=== PATIENT | female | born 1990 | race Caucasian/White ===

== ENCOUNTER 2020-01-27 17:17 | Outpatient (CLI) | payer BC, SELFPAY ==
--- NOTE | ~2020-01-27 | XR_ITS ---
EXAMINATION: XR chest 2V DATE: 01/27/2020 17:38 INDICATION: Cough and shortness of breath TECHNIQUE: PA and lateral views of the chest are obtained. COMPARISON: 12/25/2015 FINDINGS: The lungs are free of acute opacities. There is no pleural effusion or pneumothorax. The ca rdiomediastinal silhouette is normal. The visualized bones and soft tissues are unremarkable. IMPRESSION: 1. No acute cardiopulmonary abnormality. Reviewed, dictated and finalized at location A.
== END 2020-01-27 17:18 | disposition home or self-care (01) ==
LOC: CHSIMG 17:20
PROVIDERS: PCP Family Medicine; Visit Provider Family Medicine
DX: R05 Cough (principal)
CPT/HCPCS: 71046

== ENCOUNTER 2020-02-21 17:58 | Outpatient (CLI) | payer BC, SELFPAY ==
[2020-02-21 18:34] LABS: Hematocrit 41.8 % (35.0-49.0); Hemoglobin 13.9 g/dL (12.0-15.0); Mean Corpuscular HGB Conc 33.3 g/dL (32.0-36.0); Mean Corpuscular Hemoglobin 33.2 pg (27.0-31.0); Mean Corpuscular Volume 99.8 fL (78.0-102.0); Mean Platelet Volume 10.3 fl (9.2-11.8); Platelet Count Result 258 K/mm3 (150-420); Red Blood Count 4.19 M/mm3 (4.20-5.40); Red Cell Distribution Width 13.3 % (11.6-14.4); White Blood Count 6.1 K/mm3 (4.8-10.8)
[2020-02-21 18:35] LABS: Add Urine Microscopic? NO; Appearance Urine Clear (Clear); Bilirubin Urine Negative (Negative); Blood Urine Negative (Negative); Color Urine Yellow (Yellow); Glucose Urine UA Negative (Negative); Ketones Urine Negative (Negative); Leukocyte Esterase Ur Negative LEU/UL (Negative); Nitrate Urine Negative (Negative); Protein Urine Negative (Negative); Specific Grav Ur <= 1.005 (1.010-1.020); Urobilinogen Urine 0.2 mg/dL (0.2-1.0)
[2020-02-21 18:44] LABS: Creatinine Urine < 13.00 mg/dL (40-278); Total Protein Urine Random < 7.0 mg/dL (0.0-11.9)
[2020-02-21 19:18] LABS: Alanine Aminotransferase 21 U/L (14-59); Alkaline Phosphatase 80 U/L (46-116); Aspartate Amino Transferase 17 U/L (15-37); Bilirubin Direct 0.1 mg/dL (0-0.2); Bilirubin,Total 0.2 mg/dL (0.00-1.00); Estimated Glomerular Filt Rate > 60; Total Protein 6.8 g/dL (6.4-8.2)
[2020-02-25 19:42] LABS: Vitamin D 25 Hydroxy 29 ng/mL (30-100)
[2020-02-26 20:33] LABS: Complement C3 90 mg/dL (83-193)
== END 2020-02-21 17:59 | disposition home or self-care (01) ==
LOC: CHSLAB 18:01
PROVIDERS: PCP Family Medicine
DX: M32.14 Glomerular disease in systemic lupus erythematosus (principal); E55.9 Vitamin D deficiency, unspecified; Z79.899 Other long term (current) drug therapy
CPT/HCPCS: 36415; 80076; 81003; 82306; 82565; 82570; 84156; 85027; 86160; 86225

== ENCOUNTER 2020-05-15 13:29 | Outpatient (CLI) | payer BC, SELFPAY ==
[2020-05-15 13:51] LABS: Basophils Absolute Auto 0.02 K/mm3 (0.00-0.10); Basophils Percent Auto 0.4 % (0.0-1.0); Eosinophils Absolute Auto 0.14 K/mm3 (0.02-0.50); Eosinophils Percent Auto 2.8 % (1.0-6.0); Hematocrit 40.6 % (35.0-49.0); Hemoglobin 13.7 g/dL (12.0-15.0); Immature Granulocyte Absolute 0.02 K/mm3 (0.00-0.00); Immature Granulocyte Percent A 0.4 % (0.0-0.0); Lymphocytes Percent Auto 29.9 % (18.0-42.0); Mean Corpuscular HGB Conc 33.7 g/dL (32.0-36.0); Mean Corpuscular Hemoglobin 33.7 pg (27.0-31.0); Mean Corpuscular Volume 99.8 fL (78.0-102.0); Mean Platelet Volume 10.1 fl (9.2-11.8); Monocytes Absolute Auto 0.21 K/mm3 (0.10-0.90); Monocytes Percent Auto 4.2 % (2.0-11.0); Neutrophils Absolute Auto 3.1 K/mm3 (1.7-7.2); Neutrophils Percent Auto 62.3 % (50.0-70.0); Platelet Count Result 251 K/mm3 (150-420); Red Blood Count 4.07 M/mm3 (4.20-5.40); Red Cell Distribution Width 14.7 % (11.6-14.4)
[2020-05-15 14:47] LABS: Alanine Aminotransferase 25 U/L (14-59); Albumin Level 3.7 g/dL (3.4-5.0); Alkaline Phosphatase 83 U/L (46-116); Aspartate Amino Transferase 19 U/L (15-37); Bilirubin Direct 0.1 mg/dL (0-0.2); Bilirubin,Total 0.2 mg/dL (0.00-1.00); Estimated Glomerular Filt Rate > 60; Total Protein 6.6 g/dL (6.4-8.2)
[2020-05-18 19:41] LABS: Vitamin D 25 Hydroxy 44 ng/mL (30-100)
== END 2020-05-15 13:30 | disposition home or self-care (01) ==
LOC: CHSLAB 13:33
PROVIDERS: PCP Family Medicine
DX: M32.14 Glomerular disease in systemic lupus erythematosus (principal); E55.9 Vitamin D deficiency, unspecified
CPT/HCPCS: 36415; 80076; 82306; 82565; 85025

== ENCOUNTER 2020-08-14 19:11 | Outpatient (CLI) | payer BC, SELFPAY ==
[2020-08-14 19:23] LABS: Collection Time Urine 24 HOURS
[2020-08-14 19:41] LABS: Creatinine Urine 54.19 mg/dL (40-278); Patient Weight 125 Lbs; Total Protein Urine Random 11.1 mg/dL (0.0-11.9)
[2020-08-14 19:42] LABS: Serum Creat 0.78; Total Protein Urine 24 Hr 190 mg/24hr (0-149); Total Volume 24 Hour Urine 1715 ml
[2020-08-14 21:00] LABS: Basophils Absolute Auto 0.02 K/mm3 (0.00-0.10); Basophils Percent Auto 0.4 % (0.0-1.0); Eosinophils Absolute Auto 0.12 K/mm3 (0.02-0.50); Eosinophils Percent Auto 2.1 % (1.0-6.0); Hematocrit 38.9 % (35.0-49.0); Hemoglobin 12.9 g/dL (12.0-15.0); Immature Granulocyte Absolute 0.02 K/mm3 (0.00-0.00); Immature Granulocyte Percent A 0.4 % (0.0-0.0); Lymphocytes Absolute Auto 1.44 K/mm3 (1.10-4.50); Lymphocytes Percent Auto 25.4 % (18.0-42.0); Mean Corpuscular HGB Conc 33.2 g/dL (32.0-36.0); Mean Corpuscular Hemoglobin 33.9 pg (27.0-31.0); Mean Corpuscular Volume 102.4 fL (78.0-102.0); Mean Platelet Volume 10.3 fl (9.2-11.8); Monocytes Absolute Auto 0.26 K/mm3 (0.10-0.90); Monocytes Percent Auto 4.6 % (2.0-11.0); Neutrophils Absolute Auto 3.8 K/mm3 (1.7-7.2); Neutrophils Percent Auto 67.1 % (50.0-70.0); Platelet Count Result 267 K/mm3 (150-420); Red Cell Distribution Width 14.8 % (11.6-14.4); White Blood Count 5.7 K/mm3 (4.8-10.8)
[2020-08-14 21:09] LABS: Albumin Level 3.5 g/dL (3.4-5.0); Anion Gap 7 mmol/L (8-16); Blood Urea Nitrogen 8 mg/dL (7-18); Calcium 8.3 mg/dL (8.5-10.1); Carbon Dioxide 26 mmol/L (21-32); Chloride 105 mmol/L (98-108); Estimated Glomerular Filt Rate > 60; Glucose 116 mg/dL (70-99); Osmolality Calculated 285 mOsm/kg (285-295); Phosphorus 3.3 mg/dL (2.6-4.7); Potassium 4.1 mmol/L (3.5-5.1); Sodium 138 mmol/L (136-145)
[2020-08-14 21:22] LABS: MALB Creatinine Ratio 23.9 mg/g (0-30); Microalbumin Urine Random < 13.0 mg/L
[2020-08-19 15:19] LABS: Parathyroid Intact 60 pg/mL (14-64)
== END 2020-08-14 19:12 | disposition home or self-care (01) ==
LOC: CHSLAB 19:13
PROVIDERS: PCP Family Medicine; Visit Provider Internal Medicine Nephrology
DX: I12.9 Hypertensive chronic kidney disease with stage 1 through stage 4 chronic kidney disease, or unspecified chronic kidney disease (principal); N18.2 Chronic kidney disease, stage 2 (mild); M32.14 Glomerular disease in systemic lupus erythematosus
CPT/HCPCS: 36415; 80069; 81050; 82043; 82575; 83970; 84156; 85025

== ENCOUNTER 2020-09-11 13:28 | Outpatient (CLI) | payer BC, SELFPAY ==
[2020-09-11 13:44] LABS: Basophils Absolute Auto 0.01 K/mm3 (0.00-0.10); Basophils Percent Auto 0.2 % (0.0-1.0); Eosinophils Absolute Auto 0.13 K/mm3 (0.02-0.50); Hematocrit 38.6 % (35.0-49.0); Hemoglobin 12.7 g/dL (12.0-15.0); Immature Granulocyte Absolute 0.01 K/mm3 (0.00-0.00); Immature Granulocyte Percent A 0.2 % (0.0-0.0); Lymphocytes Percent Auto 27.5 % (18.0-42.0); Mean Corpuscular HGB Conc 32.9 g/dL (32.0-36.0); Mean Corpuscular Hemoglobin 33.8 pg (27.0-31.0); Mean Corpuscular Volume 102.7 fL (78.0-102.0); Mean Platelet Volume 9.7 fl (9.2-11.8); Monocytes Absolute Auto 0.19 K/mm3 (0.10-0.90); Monocytes Percent Auto 4.4 % (2.0-11.0); Neutrophils Absolute Auto 2.8 K/mm3 (1.7-7.2); Neutrophils Percent Auto 64.7 % (50.0-70.0); Platelet Count Result 246 K/mm3 (150-420); Red Blood Count 3.76 M/mm3 (4.20-5.40); Red Cell Distribution Width 14.3 % (11.6-14.4); White Blood Count 4.4 K/mm3 (4.8-10.8)
[2020-09-11 13:58] LABS: Add Urine Microscopic? NO; Appearance Urine Clear (Clear); Bilirubin Urine Negative (Negative); Blood Urine Negative (Negative); Color Urine Yellow (Yellow); Glucose Urine UA Negative (Negative); Ketones Urine Negative (Negative); Leukocyte Esterase Ur Negative LEU/UL (Negative); Nitrate Urine Negative (Negative); Protein Urine Negative (Negative); Specific Grav Ur <= 1.005 (1.010-1.020); Urobilinogen Urine 0.2 mg/dL (0.2-1.0)
[2020-09-11 14:13] LABS: Creatinine Urine 31.68 mg/dL (40-278); Total Protein Urine Random 8.2 mg/dL (0.0-11.9)
[2020-09-11 14:53] LABS: Erythrocyte Sedimentation Rate 14 mm/hr (0-15)
[2020-09-11 16:18] LABS: Alanine Aminotransferase 25 U/L (14-59); Albumin Level 3.8 g/dL (3.4-5.0); Alkaline Phosphatase 78 U/L (46-116); Anion Gap 12 mmol/L (8-16); Aspartate Amino Transferase 15 U/L (15-37); Bilirubin,Total 0.2 mg/dL (0.00-1.00); Blood Urea Nitrogen 5 mg/dL (7-18); Calcium 8.6 mg/dL (8.5-10.1); Carbon Dioxide 26 mmol/L (21-32); Chloride 104 mmol/L (98-108); Estimated Glomerular Filt Rate > 60; Glucose 85 mg/dL (70-99); Osmolality Calculated 290 mOsm/kg (285-295); Sodium 142 mmol/L (136-145); Total Protein 6.5 g/dL (6.4-8.2)
[2020-09-11 16:30] LABS: CRP < 0.2 mg/dL (0.0-0.9)
[2020-09-16 11:52] LABS: Complement C3 100 mg/dL (83-193)
== END 2020-09-11 13:29 | disposition home or self-care (01) ==
PROVIDERS: PCP Family Medicine
DX: M32.14 Glomerular disease in systemic lupus erythematosus (principal)
CPT/HCPCS: 36415; 80053; 81003; 82570; 84156; 85025; 85652; 86140; 86160; 86225

== ENCOUNTER 2020-11-26 21:24 | Emergency (ER) | payer BC, SELFPAY ==
--- NOTE | ~2020-11-26 | XR_ITS ---
EXAMINATION: XR chest 1V portable DATE: 11/26/2020 21:55 INDICATION: Shortness of breath. COVID exposure. TECHNIQUE: frontal view of the chest was obtained. COMPARISON: Chest radiograph dated 01/27/2020 FINDINGS: The lungs remain clear with no focal airspace opacities, pulmonary edema, pleural effusion or pneumot horax. The cardiomediastinal silhouette is normal. Visualized bones and soft tissues are unremarkable . IMPRESSION: 1. Normal chest radiograph. Reviewed, dictated and finalized at location A. 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 Normal chest radiograph.
[2020-11-26 21:27] VITALS: BP 129/95; PULSE 111; RESP 16; TEMP 36.7; O2SAT 97
--- NOTE | 2020-11-26 22:06 | ED.URI ---
HPI - URI/Sore Throat General Chief Complaint: Upper Respiratory Infection Stated Complaint: covid symptoms Time Seen by Provider: 11/26/20 21:36 Source: patient Mode of arrival: ambulatory Limitations: no limitations History of Present Illness HPI Narrative: Patient is a 30-year-old female who presents complaining of sinus pressure, headache and diarrhea x3 days. Patient reports positive Covid exposure. 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 Patient reports mild shortness of breath starting this afternoon. She denies cough or fever. She denies taking [id number] medications for symptom relief at this time. MD elicited complaint: sinus pain Review of Systems Review of Systems: Narrative: CONSTITUTIONAL: Denies fever, chills, or sweats. EYES: Denies visual changes, redness, or discharge. ENT: Reports sinus pressure, congestion CARDIOVASCULAR: Denies chest pain, palpitations, or edema. RESPIRATORY: Denies cough or dyspnea. GASTROINTESTINAL: Reports diarrhea, denies abdominal pain, nausea, vomiting GENITOURINARY: Denies dysuria or hematuria. SKIN: Denies rash or itching. MUSCULOSKELETAL: Denies back pain, joint pain, or myalgia. NEUROLOGIC: Reports headache PSYCHIATRIC: Denies anxiety or depression. [facility] Past Medical History Medical History Lupus Surgical History Surgical History No significant past surgical history Family History Family History Other Diabetes mellitus Social History Social History (Updated 11/26/20 @ 22:11 by LITO White) Smoking status: Current every day smoker Alcohol intake: current Substance use: never Exam Narrative: Exam Narrative: GENERAL: Well-appearing, well-nourished, and in no acute distress. HEAD: Normocephalic, atraumatic. EYES: EOMI. No redness or drainage. Conjunctiva are normal. ENT: Mucous membranes pink and moist. Nares clear. No rhinorrhea. TMs normal bilaterally. Throat normal. Uvula midline. CHEST: No respiratory distress. Clear to auscultation. HEART: Regular rate and rhythm. EXTREMITIES: Normal range of motion. SKIN: Warm, dry, no rash. NEURO: No focal deficits. Alert and oriented x3. Gait steady. PSYCH: Normal affect. No signs of depression or anxiety. Course Vital Signs Vital signs: Vital Signs Temperature 36.7 C 11/26/20 21:27 Pulse Rate 111 H 11/26/20 21:27 Respiratory Rate 16 11/26/20 21:27 Blood Pressure 129/95 H 11/26/20 21:27 Pulse Oximetry 97 11/26/20 21:27 Temperature 36.4 C 11/26/20 22:28 Pulse Rate 104 H 11/26/20 22:28 Respiratory Rate 16 11/26/20 22:28 Blood Pressure 124/86 11/26/20 22:28 Pulse Oximetry 99 11/26/20 22:28 Reviewed MDM - URI/Sore Throat MDM Narrative Medical decision making narrative: Patient's chest x-ray is normal. Covid testing performed at this time. Patient aware of the need for quarantine until results of Covid testing are determined. Patient is stable for discharge home with outpatient follow-up as needed. Differential Diagnosis Differential diagnosis: Likely upper respiratory infection Lab Data Labs: Lab Results 11/26/20 Range/Units 22:24 SARS-CoV-2 RNA (RT-PCR) Pending Imaging Data Radiologist's impression: ITS Impressions Chest X-Ray 11/26/20 22:05 IMPRESSION: 1. Normal chest radiograph. Critical Care Time Critical Care Time Critical Care Time: No Discharge Plan Discharge Clinical Impression: Upper respiratory infection Qualifiers: URI type: unspecified URI Qualified Code(s): J06.9 - Acute upper respiratory infection, unspecified Patient Disposition: Home, Self-Care Condition: Stable Instructions: Antibiotic Form, COVID-19 (Coronavirus Disease 20
[2020-11-26 22:28] VITALS: BP 124/86; PULSE 104; RESP 16; TEMP 36.4; O2SAT 99
[2020-11-27 18:46] LABS: SARS-CoV-2 RNA PCR Negative
== END 2020-11-26 22:29 | disposition home or self-care (01) ==
PROVIDERS: Emergency Provider Nurse Practitioner; PCP Family Medicine
DX: J06.9 Acute upper respiratory infection, unspecified (principal); Z20.822 Contact with and (suspected) exposure to COVID-19
CPT/HCPCS: 71045; 99283; C9803; U0003; U0005

== ENCOUNTER 2021-01-29 15:48 | Outpatient (CLI) | payer BC, SELFPAY ==
[2021-01-29 16:12] LABS: Basophils Absolute Auto 0.02 K/mm3 (0.00-0.10); Basophils Percent Auto 0.3 % (0.0-1.0); Eosinophils Absolute Auto 0.04 K/mm3 (0.02-0.50); Eosinophils Percent Auto 0.7 % (1.0-6.0); Hematocrit 41.2 % (35.0-49.0); Hemoglobin 13.4 g/dL (12.0-15.0); Immature Granulocyte Absolute 0.02 K/mm3 (0.00-0.00); Immature Granulocyte Percent A 0.3 % (0.0-0.0); Lymphocytes Absolute Auto 1.36 K/mm3 (1.10-4.50); Lymphocytes Percent Auto 22.3 % (18.0-42.0); Mean Corpuscular HGB Conc 32.5 g/dL (32.0-36.0); Mean Corpuscular Volume 101.5 fL (78.0-102.0); Mean Platelet Volume 9.8 fl (9.2-11.8); Monocytes Absolute Auto 0.23 K/mm3 (0.10-0.90); Monocytes Percent Auto 3.8 % (2.0-11.0); Neutrophils Absolute Auto 4.4 K/mm3 (1.7-7.2); Neutrophils Percent Auto 72.6 % (50.0-70.0); Platelet Count Result 274 K/mm3 (150-420); Red Blood Count 4.06 M/mm3 (4.20-5.40); Red Cell Distribution Width 14.1 % (11.6-14.4); White Blood Count 6.1 K/mm3 (4.8-10.8)
[2021-01-29 16:21] LABS: Add Urine Microscopic? NO; Appearance Urine Clear (Clear); Bilirubin Urine Negative (Negative); Blood Urine Negative (Negative); Color Urine Yellow (Yellow); Glucose Urine UA Negative (Negative); Ketones Urine Negative (Negative); Leukocyte Esterase Ur Negative LEU/UL (Negative); Nitrate Urine Negative (Negative); Protein Urine Negative (Negative); Specific Grav Ur <= 1.005 (1.010-1.020); Urobilinogen Urine 0.2 mg/dL (0.2-1.0)
[2021-01-29 16:51] LABS: Alanine Aminotransferase 25 U/L (14-59); Albumin Level 3.9 g/dL (3.4-5.0); Alkaline Phosphatase 80 U/L (46-116); Anion Gap 9 mmol/L (8-16); Aspartate Amino Transferase 34 U/L (15-37); Bilirubin,Total 0.3 mg/dL (0.00-1.00); Blood Urea Nitrogen 7 mg/dL (7-18); Calcium 8.3 mg/dL (8.5-10.1); Carbon Dioxide 28 mmol/L (21-32); Chloride 101 mmol/L (98-108); Estimated Glomerular Filt Rate > 60; Glucose 113 mg/dL (70-99); Osmolality Calculated 285 mOsm/kg (285-295); Potassium 3.8 mmol/L (3.5-5.1); Sodium 138 mmol/L (136-145); Total Protein 6.9 g/dL (6.4-8.2)
[2021-01-29 16:55] LABS: CRP < 0.2 mg/dL (0.0-0.9)
[2021-01-29 17:18] LABS: Erythrocyte Sedimentation Rate 20 mm/hr (0-15)
[2021-02-01 03:46] LABS: Vitamin D 25 Hydroxy 38 ng/mL (30-100)
[2021-02-01 15:02] LABS: Complement C3 96 mg/dL (83-193)
== END 2021-01-29 15:49 | disposition home or self-care (01) ==
LOC: CHSLAB 15:52
PROVIDERS: PCP Family Medicine; Visit Provider Internal Medicine Rheumatology
DX: M32.14 Glomerular disease in systemic lupus erythematosus (principal); E55.9 Vitamin D deficiency, unspecified
CPT/HCPCS: 36415; 80053; 81003; 82306; 85025; 85652; 86140; 86160; 86225; 87070; 87075; 87077; 87086; 87205

== ENCOUNTER 2021-06-24 15:15 | Outpatient (CLI) | payer BC, SELFPAY ==
[2021-06-24 16:18] LABS: SARS-CoV-2 RNA PCR Negative (Negative)
== END 2021-06-24 15:16 | disposition home or self-care (01) ==
LOC: CHSLAB 15:18
PROVIDERS: PCP Family Medicine; Visit Provider Family Medicine
DX: J02.9 Acute pharyngitis, unspecified (principal); Z20.822 Contact with and (suspected) exposure to COVID-19
CPT/HCPCS: 87081; 87880; C9803; U0003; U0005

== ENCOUNTER 2021-07-16 17:05 | Outpatient (CLI) | payer BC, SELFPAY ==
--- NOTE | ~2021-07-16 | XR_ITS ---
EXAMINATION: XR chest 2V DATE: 07/16/2021 17:32 INDICATION: Central chest pain. TECHNIQUE: Frontal and lateral views of the chest were obtained. COMPARISON: Chest single view 11/26/2020 FINDINGS: The chest demonstrates clear lungs without pneumonia, pleural effusion, or pneumothorax. Th e heart size is normal. IMPRESSION: 1. No acute cardiopulmonary disease. Reviewed, dictated and finalized at location A.
[2021-07-16 17:30] LABS: Basophils Absolute Auto 0.02 K/mm3 (0.00-0.10); Basophils Percent Auto 0.4 % (0.0-1.0); Eosinophils Absolute Auto 0.06 K/mm3 (0.02-0.50); Eosinophils Percent Auto 1.3 % (1.0-6.0); Hematocrit 40.4 % (35.0-49.0); Hemoglobin 13.4 g/dL (12.0-15.0); Immature Granulocyte Absolute 0.02 K/mm3 (0.00-0.00); Immature Granulocyte Percent A 0.4 % (0.0-0.0); Lymphocytes Absolute Auto 1.35 K/mm3 (1.10-4.50); Lymphocytes Percent Auto 28.8 % (18.0-42.0); Mean Corpuscular HGB Conc 33.2 g/dL (32.0-36.0); Mean Corpuscular Hemoglobin 33.3 pg (27.0-31.0); Mean Corpuscular Volume 100.2 fL (78.0-102.0); Mean Platelet Volume 9.6 fl (9.2-11.8); Monocytes Absolute Auto 0.28 K/mm3 (0.10-0.90); Neutrophils Percent Auto 63.1 % (50.0-70.0); Platelet Count Result 281 K/mm3 (150-420); Red Blood Count 4.03 M/mm3 (4.20-5.40); Red Cell Distribution Width 14.1 % (11.6-14.4); White Blood Count 4.7 K/mm3 (4.8-10.8)
[2021-07-16 17:38] LABS: Add Urine Microscopic? YES; Appearance Urine Clear (Clear); Bilirubin Urine Negative (Negative); Blood Urine Negative (Negative); Color Urine Yellow (Yellow); Glucose Urine UA Negative (Negative); Ketones Urine Trace (Negative); Leukocyte Esterase Ur Negative (Negative); Nitrate Urine Negative (Negative); Protein Urine Negative (Negative); Specific Grav Ur >= 1.030 (1.010-1.020); Urobilinogen Urine 0.2 mg/dL (0.2-1.0)
[2021-07-16 17:45] LABS: Alanine Aminotransferase 24 U/L (14-59); Albumin Level 3.7 g/dL (3.4-5.0); Alkaline Phosphatase 66 U/L (46-116); Anion Gap 8 mmol/L (8-16); Aspartate Amino Transferase 13 U/L (15-37); Bilirubin,Total 0.3 mg/dL (0.00-1.00); Blood Urea Nitrogen 12 mg/dL (7-18); Calcium 8.4 mg/dL (8.5-10.1); Carbon Dioxide 29 mmol/L (21-32); Chloride 106 mmol/L (98-108); Estimated Glomerular Filt Rate > 60; Glucose 80 mg/dL (70-99); Osmolality Calculated 294 mOsm/kg (285-295); Potassium 4.1 mmol/L (3.5-5.1); Sodium 143 mmol/L (136-145); Total Protein 6.7 g/dL (6.4-8.2)
[2021-07-16 17:50] LABS: CRP < 0.5 mg/dL (0.0-0.9)
[2021-07-16 17:56] LABS: Bacteria Urine Trace /hpf; RBC Urine None seen /hpf (0-2); Squamous Epithelial Cell Urine Few /hpf (Few); WBC Urine None seen /hpf (0-3)
[2021-07-16 18:16] LABS: Erythrocyte Sedimentation Rate 10 mm/hr (0-15)
[2021-07-19 10:14] LABS: Complement C3 93 mg/dL (83-193)
[2021-07-19 15:18] LABS: Vitamin D 25 Hydroxy 26 ng/mL (30-100)
== END 2021-07-16 17:06 | disposition home or self-care (01) ==
PROVIDERS: PCP Family Medicine; Visit Provider Internal Medicine Rheumatology
DX: M32.14 Glomerular disease in systemic lupus erythematosus (principal); R07.89 Other chest pain
CPT/HCPCS: 36415; 71046; 80053; 81001; 82306; 85025; 85652; 86140; 86160; 86225; 87086

== ENCOUNTER 2021-08-09 08:46 | Outpatient (CLI) | payer BC, SELFPAY | END 2021-08-09 08:47 | disposition home or self-care (01) | LOC: CHSCARD 08:48 | PROVIDERS: PCP Family Medicine; Visit Provider Family Medicine | DX: R06.02 Shortness of breath (principal); R07.89 Other chest pain | CPT/HCPCS: 94060; 94726; 94729 ==

== ENCOUNTER 2021-09-23 19:41 | Outpatient (CLI) | payer BC, SELFPAY ==
[2021-09-23 20:02] LABS: Creatinine 24 Hour Urine 1.15 g/24 hr (0.60-1.80); Total Volume 24 Hour Urine 850 ml
[2021-09-23 20:09] LABS: Total Protein Urine 24 Hr 245 mg/24hr (0-149); Total Protein Urine Random 28.8 mg/dL (0.0-11.9); Total Volume 24 Hour Urine 850 ml
[2021-09-24 10:42] LABS: Collection Time Urine 24 HOURS
== END 2021-09-23 19:42 | disposition home or self-care (01) ==
LOC: CHSLAB 19:43
PROVIDERS: PCP Family Medicine; Visit Provider Internal Medicine Nephrology
DX: M32.14 Glomerular disease in systemic lupus erythematosus (principal); N18.1 Chronic kidney disease, stage 1; M32.9 Systemic lupus erythematosus, unspecified; N03.9 Chronic nephritic syndrome with unspecified morphologic changes
CPT/HCPCS: 81002; 81050; 82570; 82575; 84156

== ENCOUNTER 2021-10-01 18:09 | Outpatient (CLI) | payer BC, SELFPAY ==
[2021-10-01 19:48] LABS: Collection Time Urine 24 HOURS
[2021-10-01 19:54] LABS: Patient Weight 128 Lbs; Serum Creat 0.81; Total Volume 24 Hour Urine 1200 ml
[2021-10-01 20:04] LABS: Creatinine Clearance Urine 125.8 ml/min (97-137); Creatinine Urine 108.81 mg/dL (40-278)
== END 2021-10-01 18:10 | disposition home or self-care (01) ==
PROVIDERS: PCP Family Medicine; Visit Provider Internal Medicine Nephrology
DX: M32.14 Glomerular disease in systemic lupus erythematosus (principal); I12.9 Hypertensive chronic kidney disease with stage 1 through stage 4 chronic kidney disease, or unspecified chronic kidney disease; N18.1 Chronic kidney disease, stage 1; M32.9 Systemic lupus erythematosus, unspecified
CPT/HCPCS: 82575

== ENCOUNTER 2021-10-27 20:48 | Emergency (ER) | payer BC, SELFPAY ==
[2021-10-27 20:55] VITALS: BP 117/85; PULSE 99; RESP 16; TEMP 36.2; O2SAT 99
[2021-10-27 23:24] VITALS: BP 119/89; PULSE 94; RESP 16; O2SAT 97
--- NOTE | 2021-10-27 23:44 | ED.GENADULT ---
HPI - General Adult General Chief complaint: Abdominal Pain Stated complaint: abd pain Time Seen by Provider: 10/27/21 23:12 Source: patient Mode of arrival: ambulatory Limitations: no limitations History of Present Illness HPI narrative: 31-year-old with a history of lupus here with complaints of pain in the pelvic area for the last 5 days. She states that she has seen her primary doctor was started on Augmentin 2 days ago she still continues to have pain and increasing swelling. She denies any fever or chills. Onset (ago): day(s) (5) Location: genitals Severity: moderate Quality: aching Pain Consistency: constant Relieving factors: none Exacerbating factors: none Treatments prior to arrival: other (On Augmentin) Related Data Home Medications Medication Instructions Recorded Confirmed amoxicillin-pot clavulanate tablet 10/27/21 azathioprine 10/27/21 brexpiprazole [Rexulti] mg 10/27/21 citalopram mg 10/27/21 citalopram mg 10/27/21 fluconazole 10/27/21 hydroxychloroquine PO 10/27/21 spironolactone 10/27/21 Allergies Allergy/AdvReac Type Severity Reaction Status Date / Time No Known Allergies Allergy Verified 10/27/21 21:02 Review of Systems Review of Systems: All systems reviewed & are unremarkable except as noted in HPI and below ROS unobtainable: Yes unobtainable due to endotracheal tube Constitutional: Constitutional: Reports no additional constitutional complaints Eyes: Eyes: Reports no additional eye complaints ENT: Reports system reviewed and no additional complaints, except as documented Cardiovascular: Cardiovascular: Reports no additional cardiovascular complaints Respiratory: Respiratory: Reports no additional respiratory complaints Gastrointestinal: Gastrointestinal: Reports no additional gastrointestinal complaints Genitourinary: Genitourinary: Reports as per HPI Musculoskeletal: Musculoskeletal: Reports no additional musculoskeletal complaints Integumentary/Breasts: Skin/Breast: Reports system reviewed and no additional complaints, except as docu PMFSH Past Medical History Medical History Lupus Surgical History Surgical History No significant past surgical history Family History Family History Other Diabetes mellitus Social History Social History Smoking status: Current every day smoker Alcohol intake: current Substance use: never Exam Narrative: GENERAL: Well-appearing, well-nourished, and in no acute distress. HEAD: Normocephalic, atraumatic. EYES: PERRLA and EOMI. NECK: Supple. CHEST: Clear to auscultation. No respiratory distress. HEART: Regular rate and rhythm. No murmur heard. Normal peripheral pulses. ABDOMEN: Soft, nontender, nondistended, normal active bowel sounds. there is about 3 cms swelling noted on the right side lateral to labia , hard , skin is erythematous and mild induration , non fluctuant EXTREMITIES: Normal range of motion. No edema. SKIN: Warm, dry, no rash. NEURO: No focal deficits. Alert and oriented x3. PSYCH: Normal mood and affect. Course Course Emergency Course: Inform patient about my physical findings. It is too early for I&D at this time. Advised her to continue Augmentin 1 warm compress. Follow-up with HOME SUPPORT WORKER or primary doctor for I&D. Patient requested pain medication. Vital Signs Vital signs: Vital Signs Temperature 36.2 C L 10/27/21 20:55 Pulse Rate 99 10/27/21 20:55 Respiratory Rate 16 10/27/21 20:55 Blood Pressure 117/85 10/27/21 20:55 Pulse Oximetry 99 10/27/21 20:55 Temperature 36.2 C L 10/27/21 20:55 Pulse Rate 94 10/27/21 23:24 Respiratory Rate 16 10/27/21 23:24 Blood Pressure 119/89 10/27/21 23:24 Pulse Oximetry 97 10/27/21 23:24 Medical Decis
[2021-10-28] MEDS: HYDROcodone/acetaminophen (*CRX) 5-325 MG TABLET 1 TAB PO (00:18)
[2021-10-28 00:22] VITALS: BP 105/83; PULSE 76; RESP 16; O2SAT 100
== END 2021-10-28 00:25 | disposition home or self-care (01) ==
LOC: ANHED 23:52
PROVIDERS: Emergency Provider Family Medicine; PCP Family Medicine
DX: N76.2 Acute vulvitis (principal); M32.9 Systemic lupus erythematosus, unspecified; F17.210 Nicotine dependence, cigarettes, uncomplicated
CPT/HCPCS: 99283; A9270

== ENCOUNTER 2022-02-09 18:01 | Outpatient (CLI) | payer BC, SELFPAY ==
[2022-02-09 18:28] LABS: Basophils Absolute Auto 0.04 K/mm3 (0.00-0.10); Basophils Percent Auto 0.8 % (0.0-1.0); Eosinophils Absolute Auto 0.08 K/mm3 (0.02-0.50); Eosinophils Percent Auto 1.6 % (1.0-6.0); Hematocrit 43.9 % (35.0-49.0); Hemoglobin 14.5 g/dL (12.0-15.0); Immature Granulocyte Absolute 0.02 K/mm3 (0.00-0.00); Immature Granulocyte Percent A 0.4 % (0.0-0.0); Lymphocytes Absolute Auto 1.69 K/mm3 (1.10-4.50); Lymphocytes Percent Auto 34.6 % (18.0-42.0); Mean Corpuscular Hemoglobin 33.3 pg (27.0-31.0); Mean Corpuscular Volume 100.9 fL (78.0-102.0); Mean Platelet Volume 10.1 fl (9.2-11.8); Monocytes Absolute Auto 0.51 K/mm3 (0.10-0.90); Monocytes Percent Auto 10.5 % (2.0-11.0); Neutrophils Absolute Auto 2.5 K/mm3 (1.7-7.2); Neutrophils Percent Auto 52.1 % (50.0-70.0); Platelet Count Result 291 K/mm3 (150-420); Red Blood Count 4.35 M/mm3 (4.20-5.40); Red Cell Distribution Width 14.1 % (11.6-14.4); White Blood Count 4.9 K/mm3 (4.8-10.8)
[2022-02-09 18:37] LABS: Add Urine Microscopic? YES; Appearance Urine Clear (Clear); Bilirubin Urine Negative (Negative); Blood Urine Negative (Negative); Color Urine Dark Yellow (Yellow); Glucose Urine UA Negative (Negative); Ketones Urine Trace (Negative); Leukocyte Esterase Ur Negative LEU/UL (Negative); Nitrate Urine Negative (Negative); Protein Urine Negative (Negative); Specific Grav Ur >= 1.030 (1.010-1.020); Urobilinogen Urine 0.2 mg/dL (0.2-1.0)
[2022-02-09 18:38] LABS: Creatinine Urine 166.55 mg/dL (40-278); Total Protein Urine Random 43.3 mg/dL (0.0-11.9); Ur Ttl Prot Creatinine Ratio 0.26 mg/mg (0-0.20)
[2022-02-09 18:39] LABS: Bacteria Urine Trace /hpf; RBC Urine 0-2 /hpf (0-2); Squamous Epithelial Cell Urine Rare /hpf (Few); WBC Urine 0-3 /hpf (0-3)
[2022-02-09 18:40] LABS: Mucus Urine Few /lpf
[2022-02-09 19:24] LABS: Alanine Aminotransferase 32 U/L (14-59); Albumin Level 3.8 g/dL (3.4-5.0); Alkaline Phosphatase 66 U/L (46-116); Anion Gap 8 mmol/L (8-16); Aspartate Amino Transferase 24 U/L (15-37); Bilirubin,Total 0.2 mg/dL (0.00-1.00); Blood Urea Nitrogen 12 mg/dL (7-18); CRP < 0.5 mg/dL (0.0-0.9); Calcium 8.5 mg/dL (8.5-10.1); Carbon Dioxide 27 mmol/L (21-32); Chloride 103 mmol/L (98-108); Estimated Glomerular Filt Rate > 60; Glucose 81 mg/dL (70-99); Osmolality Calculated 284 mOsm/kg (285-295); Potassium 4.3 mmol/L (3.5-5.1); Sodium 138 mmol/L (136-145); Total Protein 6.6 g/dL (6.4-8.2)
[2022-02-09 19:37] LABS: Erythrocyte Sedimentation Rate 28 mm/hr (0-15)
== END 2022-02-09 18:02 | disposition home or self-care (01) ==
LOC: CHSLAB 18:03
PROVIDERS: PCP Family Medicine; Visit Provider Internal Medicine Rheumatology
DX: M32.14 Glomerular disease in systemic lupus erythematosus (principal); Z79.899 Other long term (current) drug therapy
CPT/HCPCS: 36415; 80053; 81001; 82570; 84156; 85025; 85652; 86140; 86160; 86225

== ENCOUNTER 2022-02-25 16:56 | Outpatient (CLI) | payer BC, SELFPAY ==
[2022-03-03 15:01] LABS: Complement C3 100 mg/dL (83-193)
== END 2022-02-25 16:57 | disposition home or self-care (01) ==
LOC: CHSLAB 17:02
PROVIDERS: PCP Internal Medicine Rheumatology; Visit Provider Internal Medicine Rheumatology
DX: M32.14 Glomerular disease in systemic lupus erythematosus (principal); Z79.899 Other long term (current) drug therapy
CPT/HCPCS: 86160

== ENCOUNTER 2022-08-18 17:13 | Outpatient (CLI) | payer BC, SELFPAY ==
[2022-08-18 17:38] LABS: Basophils Absolute Auto 0.03 K/mm3 (0.00-0.10); Basophils Percent Auto 0.7 % (0.0-1.0); Eosinophils Absolute Auto 0.08 K/mm3 (0.02-0.50); Eosinophils Percent Auto 1.7 % (1.0-6.0); Hematocrit 41.3 % (35.0-49.0); Hemoglobin 13.7 g/dL (12.0-15.0); Immature Granulocyte Absolute 0.01 K/mm3 (0.00-0.00); Immature Granulocyte Percent A 0.2 % (0.0-0.0); Lymphocytes Absolute Auto 1.53 K/mm3 (1.10-4.50); Lymphocytes Percent Auto 33.2 % (18.0-42.0); Mean Corpuscular HGB Conc 33.2 g/dL (32.0-36.0); Mean Corpuscular Hemoglobin 33.3 pg (27.0-31.0); Mean Corpuscular Volume 100.5 fL (78.0-102.0); Mean Platelet Volume 10.1 fl (9.2-11.8); Monocytes Absolute Auto 0.29 K/mm3 (0.10-0.90); Monocytes Percent Auto 6.3 % (2.0-11.0); Neutrophils Absolute Auto 2.7 K/mm3 (1.7-7.2); Neutrophils Percent Auto 57.9 % (50.0-70.0); Platelet Count Result 266 K/mm3 (150-420); Red Blood Count 4.11 M/mm3 (4.20-5.40); Red Cell Distribution Width 13.7 % (11.6-14.4); White Blood Count 4.6 K/mm3 (4.8-10.8)
[2022-08-18 17:40] LABS: Appearance Urine Clear (Clear); Bilirubin Urine Negative (Negative); Blood Urine Negative (Negative); Glucose Urine UA Negative (Negative); Ketones Urine 1+ (Negative); Leukocyte Esterase Ur Negative (Negative); Nitrate Urine Negative (Negative); Protein Urine Trace (Negative); Specific Grav Ur >= 1.030 (1.010-1.020); Urobilinogen Urine 0.2 mg/dL (0.2-1.0)
[2022-08-18 17:41] LABS: Add Urine Microscopic? YES; Color Urine Dark Orange (Yellow); RBC Urine None seen /hpf (0-2); Squamous Epithelial Cell Urine Few /hpf (Few); WBC Urine None seen /hpf (0-3)
[2022-08-18 17:42] LABS: Bacteria Urine Trace /hpf; Mucus Urine Few /lpf
[2022-08-18 17:45] LABS: Creatinine Urine 306.36 mg/dL (40-278); Ur Ttl Prot Creatinine Ratio 0.23 mg/mg (0-0.20)
[2022-08-18 17:54] LABS: Alanine Aminotransferase 46 U/L (14-59); Albumin Level 3.8 g/dL (3.4-5.0); Alkaline Phosphatase 64 U/L (46-116); Anion Gap 6 mmol/L (8-16); Aspartate Amino Transferase 26 U/L (15-37); Bilirubin,Total 0.4 mg/dL (0.00-1.00); Blood Urea Nitrogen 13 mg/dL (7-18); Calcium 8.5 mg/dL (8.5-10.1); Carbon Dioxide 28 mmol/L (21-32); Chloride 106 mmol/L (98-108); Estimated Glomerular Filt Rate > 60; Glucose 97 mg/dL (70-99); Osmolality Calculated 290 mOsm/kg (285-295); Potassium 4.1 mmol/L (3.5-5.1); Sodium 140 mmol/L (136-145); Total Protein 6.7 g/dL (6.4-8.2)
[2022-08-18 17:55] LABS: CRP < 0.2 mg/dL (0.0-0.9)
[2022-08-18 18:37] LABS: Erythrocyte Sedimentation Rate 8 mm/hr (0-15)
[2022-08-22 06:49] LABS: Complement C3 111 mg/dL (83-193)
[2022-08-24 12:22] LABS: Vitamin D 25 Hydroxy 36 ng/mL (30-100)
== END 2022-08-18 17:14 | disposition home or self-care (01) ==
LOC: CHSLAB 17:16
PROVIDERS: PCP Family Medicine; Visit Provider Internal Medicine Rheumatology
DX: E55.9 Vitamin D deficiency, unspecified (principal); M32.14 Glomerular disease in systemic lupus erythematosus
CPT/HCPCS: 36415; 80053; 81001; 82306; 82570; 84156; 85025; 85652; 86140; 86160; 86225; 87086

== ENCOUNTER 2022-10-20 17:56 | Outpatient (CLI) | payer BC, SELFPAY ==
[2022-10-20 18:27] LABS: Basophils Percent Auto 0.7 % (0.2-1.2); Eosinophils Absolute Auto 0.1 K/mm3 (0-0.3); Eosinophils Percent Auto 1.9 % (0-4.4); Immature Granulocyte Absolute 0.01 K/mm3 (0.00-0.031); Immature Granulocyte Percent A 0.2 % (0-0.5); Lymphocytes Absolute Auto 1.91 K/mm3 (0.9-3.2); Lymphocytes Percent Auto 33.6 % (18.3-44.2); Mean Corpuscular HGB Conc 33.3 g/dl (32-36); Mean Corpuscular Hemoglobin 33.1 pg (26-34); Mean Corpuscular Volume 99.3 fl (80-100); Mean Platelet Volume 9.5 fl (7.4-10.4); Monocytes Absolute Auto 0.5 K/mm3 (0.1-0.6); Monocytes Percent Auto 8.6 % (2.6-8.5); Neutrophils Absolute Auto 3.1 K/mm3 (1.3-6.7); Platelet Count Result 235 k/mm3 (150-375); Red Blood Count 4.23 M/mm3 (4.2-5.4); Red Cell Distribution Width 12.7 % (11.5-14.5); White Blood Count 5.7 K/mm3 (4.5-10.0)
[2022-10-20 18:39] LABS: Albumin Level 4.4 g/dL (3.5-5.1); Anion Gap 5 mmol/L (8-16); Blood Urea Nitrogen 10 mg/dL (7-17); Calcium 8.6 mg/dL (8.4-10.2); Carbon Dioxide 27 mmol/L (22-30); Chloride 104 mmol/L (98-107); Estimated Glomerular Filt Rate > 60; Glucose 106 mg/dL (65-110); Phosphorus 3.2 mg/dL (2.5-4.5); Potassium 4.4 mmol/L (3.4-5.0); Sodium 136 mmol/L (137-145)
[2022-10-20 18:47] LABS: Complement C3 104 mg/dL (88-165)
[2022-10-20 19:01] LABS: Erythrocyte Sedimentation Rate 11 mm/hr (0-20)
[2022-10-21 05:04] LABS: Appearance Urine Clear (Clear); Bilirubin Urine Negative (Negative); Blood Urine Negative (Negative); Color Urine Yellow (Yellow); Glucose Urine UA Negative (Negative); Ketones Urine Negative (Negative); Leukocyte Esterase Ur Negative LEU/UL (NEGATIVE); Nitrate Urine Negative (Negative); Protein Urine Negative (Negative); Specific Grav Ur 1.025 (1.001-1.035); Urobilinogen Urine 0.2 mg/dL (<2.0); pH Urine 6.5 (5.0-9.0)
[2022-10-21 05:14] LABS: Creatinine Urine 109.4 mg/dL
[2022-10-21 05:20] LABS: Add Urine Microscopic? NO
[2022-10-21 06:45] LABS: Total Protein Urine Random < 5 mg/dL; Ur Ttl Prot Creatinine Ratio < 0.05 mg/mg (0-0.20)
[2022-10-31 22:59] LABS: Anti Nuclear Antibody Titer 1:40 (Negative)
== END 2022-10-20 17:57 | disposition home or self-care (01) ==
LOC: ANHLAB 17:58
PROVIDERS: PCP Family Medicine; Visit Provider Internal Medicine Nephrology
DX: M32.14 Glomerular disease in systemic lupus erythematosus (principal)
CPT/HCPCS: 36415; 80069; 81003; 82570; 84156; 85025; 85652; 86038; 86039; 86160; 86225

== ENCOUNTER 2023-05-18 15:55 | Outpatient (CLI) | payer BC, SELFPAY ==
[2023-05-18 16:11] LABS: Appearance Urine Clear (Clear); Bilirubin Urine Negative (Negative); Blood Urine Negative (Negative); Glucose Urine UA Negative (Negative); Ketones Urine Trace (Negative); Leukocyte Esterase Ur Negative (Negative); Nitrate Urine Negative (Negative); Protein Urine Trace (Negative); Specific Grav Ur >= 1.030 (1.010-1.020); Urobilinogen Urine 0.2 mg/dL (0.2-1.0); pH Urine 5.5 (5.0-8.0)
[2023-05-18 16:15] LABS: Add Urine Microscopic? YES; Color Urine Dark Yellow (Yellow); RBC Urine None seen /hpf (0-2); Squamous Epithelial Cell Urine Few /hpf (Few); WBC Urine None seen /hpf (0-3)
[2023-05-18 16:16] LABS: Bacteria Urine Trace /hpf
== END 2023-05-18 15:56 | disposition home or self-care (01) ==
LOC: CHSLAB 15:57
PROVIDERS: PCP Family Medicine; Visit Provider Internal Medicine Rheumatology
DX: M32.14 Glomerular disease in systemic lupus erythematosus (principal)
CPT/HCPCS: 81001; 87086

== ENCOUNTER 2024-01-08 18:34 | Outpatient (CLI) | payer BC, SELFPAY ==
[2024-01-08 18:56] LABS: Basophils Absolute Auto 0.03 K/mm3 (0.00-0.10); Basophils Percent Auto 0.5 % (0.0-1.0); Eosinophils Absolute Auto 0.08 K/mm3 (0.02-0.50); Eosinophils Percent Auto 1.2 % (1.0-6.0); Immature Granulocyte Absolute 0.01 K/mm3 (0.00-0.00); Immature Granulocyte Percent A 0.2 % (0.0-0.0); Lymphocytes Absolute Auto 1.74 K/mm3 (1.10-4.50); Lymphocytes Percent Auto 26.8 % (18.0-42.0); Mean Corpuscular HGB Conc 32.6 g/dL (32.0-36.0); Mean Corpuscular Hemoglobin 30.4 pg (27.0-31.0); Mean Corpuscular Volume 93.5 fL (78.0-102.0); Mean Platelet Volume 9.4 fl (9.2-11.8); Monocytes Absolute Auto 0.46 K/mm3 (0.10-0.90); Monocytes Percent Auto 7.1 % (2.0-11.0); Neutrophils Absolute Auto 4.2 K/mm3 (1.7-7.2); Neutrophils Percent Auto 64.2 % (50.0-70.0); Platelet Count Result 312 K/mm3 (150-420); Red Cell Distribution Width 12.8 % (11.6-14.4); White Blood Count 6.5 K/mm3 (4.8-10.8)
[2024-01-08 19:03] LABS: Creatinine Urine 244.04 mg/dL (40-278); Total Protein Urine Random 41.2 mg/dL (0.0-11.9); Ur Ttl Prot Creatinine Ratio 0.17 mg/mg (0-0.20)
[2024-01-08 20:13] LABS: Erythrocyte Sedimentation Rate 6 mm/hr (0-15)
[2024-01-08 20:15] LABS: Anion Gap 10 mmol/L (8-16); Blood Urea Nitrogen 17 mg/dL (7-18); Calcium 8.7 mg/dL (8.5-10.1); Carbon Dioxide 28 mmol/L (21-32); Chloride 104 mmol/L (98-108); Estimated Glomerular Filt Rate > 60; Glucose 96 mg/dL (70-99); Osmolality Calculated 295 mOsm/kg (285-295); Phosphorus 4.6 mg/dL (2.6-4.7); Potassium 4.1 mmol/L (3.5-5.1); Sodium 142 mmol/L (136-145)
[2024-01-13 10:03] LABS: Complement C3 120 mg/dL (83-193)
== END 2024-01-08 18:35 | disposition home or self-care (01) ==
LOC: CHSLAB 18:36
PROVIDERS: PCP Family Medicine; Visit Provider Internal Medicine Nephrology
DX: M32.14 Glomerular disease in systemic lupus erythematosus (principal)
CPT/HCPCS: 36415; 80069; 82570; 84156; 85025; 85652; 86160; 86225

== ENCOUNTER 2024-01-17 18:26 | Outpatient (CLI) | payer BC, SELFPAY ==
[2024-01-17 18:48] LABS: Basophils Absolute Auto 0.04 K/mm3 (0.00-0.10); Basophils Percent Auto 0.6 % (0.0-1.0); Eosinophils Absolute Auto 0.08 K/mm3 (0.02-0.50); Eosinophils Percent Auto 1.3 % (1.0-6.0); Hemoglobin 13.9 g/dL (12.0-15.0); Immature Granulocyte Absolute 0.02 K/mm3 (0.00-0.00); Immature Granulocyte Percent A 0.3 % (0.0-0.0); Lymphocytes Absolute Auto 1.57 K/mm3 (1.10-4.50); Mean Corpuscular HGB Conc 32.3 g/dL (32.0-36.0); Mean Corpuscular Hemoglobin 30.4 pg (27.0-31.0); Mean Corpuscular Volume 94.1 fL (78.0-102.0); Mean Platelet Volume 9.6 fl (9.2-11.8); Monocytes Absolute Auto 0.34 K/mm3 (0.10-0.90); Monocytes Percent Auto 5.4 % (2.0-11.0); Neutrophils Absolute Auto 4.2 K/mm3 (1.7-7.2); Neutrophils Percent Auto 67.4 % (50.0-70.0); Platelet Count Result 315 K/mm3 (150-420); Red Blood Count 4.57 M/mm3 (4.20-5.40); White Blood Count 6.3 K/mm3 (4.8-10.8)
[2024-01-17 18:54] LABS: Appearance Urine Clear (Clear); Bilirubin Urine Negative (Negative); Blood Urine Negative (Negative); Color Urine Yellow (Yellow); Glucose Urine UA Negative (Negative); Ketones Urine Negative (Negative); Leukocyte Esterase Ur Negative LEU/UL (Negative); Nitrate Urine Negative (Negative); Protein Urine Negative (Negative); Specific Grav Ur 1.025 (1.010-1.020); Urobilinogen Urine 0.2 mg/dL (0.2-1.0)
[2024-01-17 18:57] LABS: Add Urine Microscopic? NO; Creatinine Urine 75.01 mg/dL (40-278); Total Protein Urine Random 30.4 mg/dL (0.0-11.9); Ur Ttl Prot Creatinine Ratio 0.41 mg/mg (0-0.20)
[2024-01-17 19:41] LABS: Alanine Aminotransferase 35 U/L (14-59); Albumin Level 3.9 g/dL (3.4-5.0); Alkaline Phosphatase 60 U/L (46-116); Anion Gap 9 mmol/L (8-16); Aspartate Amino Transferase 14 U/L (15-37); Bilirubin,Total 0.3 mg/dL (0.00-1.00); Blood Urea Nitrogen 13 mg/dL (7-18); CRP < 0.5 mg/dL (0.0-0.9); Calcium 8.8 mg/dL (8.5-10.1); Carbon Dioxide 28 mmol/L (21-32); Chloride 102 mmol/L (98-108); Estimated Glomerular Filt Rate > 60; Glucose 76 mg/dL (70-99); Osmolality Calculated 287 mOsm/kg (285-295); Potassium 4.6 mmol/L (3.5-5.1); Sodium 139 mmol/L (136-145); Total Protein 6.8 g/dL (6.4-8.2)
[2024-01-17 19:42] LABS: Thyroid Stimulating Hormone Reflex 1.71 u/IU/mL (0.36-3.74)
[2024-01-17 19:50] LABS: Erythrocyte Sedimentation Rate 4 mm/hr (0-15)
[2024-01-24 10:44] LABS: Complement C3 116 mg/dL (83-193)
== END 2024-01-17 18:27 | disposition home or self-care (01) ==
PROVIDERS: PCP Family Medicine; Visit Provider Internal Medicine Rheumatology
DX: M32.14 Glomerular disease in systemic lupus erythematosus (principal)
CPT/HCPCS: 36415; 80053; 81003; 82570; 84156; 84443; 85025; 85652; 86140; 86160; 86225

== ENCOUNTER 2024-05-01 14:48 | Emergency (ER) | payer BC, SELFPAY ==
--- NOTE | ~2024-05-01 | XR_ITS ---
XR chest 2V Ordering provider: Abdelrahman Ni MD History: 33 years Female with . chest pain, LT SIDED X 1 WK . Comparison: July 16, 2021 FINDINGS: MEDIASTINUM: The cardiac silhouette is not enlarged. LUNGS: No infiltrates, effusions or pneumothorax. OTHER: No free air under the diaphragm. IMPRESSION: No acute cardiopulmonary pathology. Reviewed, dictated and finalized at location A.
--- NOTE | 2024-05-01 14:49 | ECG_ITS ---
Test Date: 2024-05-01 14:52:51 Measurements Intervals [place] Rate: 108 P: 65 OR: 126 QRS: 83 QRSD: 84 T: 41 QT: 341 QTc: 458 Interpretive Statements SINUS TACHYCARDIA POSSIBLE LEFT ATRIAL ENLARGEMENT [-0.1mV P-WAVE IN V1/V2] ABNORMAL ECG No previous ECG available for comparison Electronically Signed On 05-01-2024 15:17:51 CDT by Eduardo Juan M.D.
[2024-05-01 14:57] VITALS: BP 128/84; PULSE 114; RESP 16; TEMP 36.1; O2SAT 100
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
[2024-05-01 15:14] VITALS: PULSE 105; O2SAT 99
[2024-05-01 15:16] LABS: Basophils Percent Auto 0.5 % (0.2-1.2); Eosinophils Absolute Auto 0.1 K/mm3 (0-0.3); Eosinophils Percent Auto 1.4 % (0-4.4); Hematocrit 40.2 % (37.0-47.0); Hemoglobin 13.5 g/dL (12.0-15.0); Immature Granulocyte Absolute 0.02 K/mm3 (0.00-0.031); Immature Granulocyte Percent A 0.3 % (0-0.5); Lymphocytes Absolute Auto 1.77 K/mm3 (0.9-3.2); Lymphocytes Percent Auto 27.9 % (18.3-44.2); Mean Corpuscular HGB Conc 33.6 g/dl (32-36); Mean Corpuscular Hemoglobin 31.8 pg (26-34); Mean Corpuscular Volume 94.8 fl (80-100); Mean Platelet Volume 9.7 fl (7.4-10.4); Monocytes Absolute Auto 0.5 K/mm3 (0.1-0.6); Monocytes Percent Auto 7.2 % (2.6-8.5); Neutrophils Percent Auto 62.7 % (45.5-73.1); Platelet Count Result 291 k/mm3 (150-375); Red Blood Count 4.24 M/mm3 (4.2-5.4); Red Cell Distribution Width 12.5 % (11.5-14.5); White Blood Count 6.4 K/mm3 (4.5-10.0)
[2024-05-01 15:30] LABS: D Dimer 0.28 ug/mL (<0.48)
[2024-05-01 15:43] LABS: Alanine Aminotransferase 34 U/L (6-35); Albumin Level 4.4 g/dL (3.5-5.1); Alkaline Phosphatase 58 U/L (38-126); Anion Gap 6 mmol/L (4-12); Aspartate Amino Transferase 34 U/L (14-36); Bilirubin,Total 0.5 mg/dL (0.2-1.3); Blood Urea Nitrogen 15 mg/dL (7-17); Calcium 9.3 mg/dL (8.4-10.2); Carbon Dioxide 27 mmol/L (22-30); Chloride 106 mmol/L (98-107); Estimated CRCL calculation 84 ml/min; Estimated Glomerular Filt Rate > 60; Glucose 81 mg/dL (65-110); Lipase 73 U/L (23-300); Sodium 139 mmol/L (137-145)
[2024-05-01 16:02] LABS: Troponin I < 0.012 ng/mL (0.000-0.034)
[2024-05-01 16:10] LABS: INR 0.9; Prothrombin Time 12.7 Seconds (11.1-14.7)
[2024-05-01 16:11] LABS: Partial Thromboplastin Time 23.3 Seconds (22.3-36.8)
[2024-05-01 16:51] VITALS: BP 108/78; PULSE 99; RESP 18; O2SAT 100
[2024-05-01 18:03] VITALS: BP 118/67; PULSE 117; RESP 16; O2SAT 99
[2024-05-01 18:52] LABS: Influenza A QL RT-PCR Negative (Negative); Influenza B QL RT-PCR Negative (Negative); RSV RNA, RT-PCR Negative (Negative); SARS-CoV-2 RNA PCR Negative (Negative)
[2024-05-01 18:55] VITALS: BP 128/87; PULSE 100; RESP 20; O2SAT 99
[2024-05-01 19:26] VITALS: BP 124/74; PULSE 98; RESP 15; O2SAT 100
== END 2024-05-01 19:27 | disposition home or self-care (01) ==
PROVIDERS: Emergency Medicine; Emergency Provider Student in an Organized Health Care Education/Training Program; PCP Family Medicine
DX: R07.89 Other chest pain (principal); S20.212A Contusion of left front wall of thorax, initial encounter; Z20.822 Contact with and (suspected) exposure to COVID-19; M32.9 Systemic lupus erythematosus, unspecified; F41.9 Anxiety disorder, unspecified; F32.A Depression, unspecified; F17.200 Nicotine dependence, unspecified, uncomplicated; Z79.899 Other long term (current) drug therapy; X58.XXXA Exposure to other specified factors, initial encounter; Y93.I1 Activity, roller coaster riding
CPT/HCPCS: 36415; 71046; 80053; 83690; 84484; 85025; 85380; 85610; 85730; 87637; 93005; 99284